=== PATIENT | female | born 1965 | race Caucasian/White ===

== ENCOUNTER → 2017-10-11 15:05 | Outpatient (CLI) | payer SELFPAY ==
[2017-10-11 17:11] LABS: Absolute Lymphocyte Count 1.56 X10^3/ul (0.83-4.51); Absolute Neutrophil Count 3.2 X10^3/uL (2.0-7.7); Basophil# 0.03 X10^3/uL; Basophil% 0.6 % (0-1); Eosinophil# 0.06 X10^3/uL; Eosinophils% 1.1 % (0-5); Hematocrit 39.2 % (37-47); Hemoglobin 12.7 g/dl (12.0-15.0); Lymphocyte # 1.56 X10^3/ul (4.0); Lymphocyte % 28.9 % (19-41); Mean Corp Hgb Conc 32.4 g/gl (32-36); Mean Corpuscular Hgb 30.8 pg (27.0-32.0); Mean Corpuscular Volume 95.1 fL (81-99); Mean Platelet Vol. 10.3 fl (6.2-12.0); Monocyte# 0.52 X10^3/uL; Monocyte% 9.6 % (0-10); Neutrophil # 3.21 X10^3/uL (2.7-7.7); Neutrophil % 59.6 % (47-70); Platelet Count 259 K/mm3 (150-450); RBC Distribution Width CV 13.3 % (11.6-14.6); RBC Distribution Width SD 44.4 fl (35.1-43.9); Red Blood Count 4.12 M/mm3 (4.2-5.4); White Blood Count 5.4 K/mm3 (4.4-11.0)
[2017-10-11 17:40] LABS: Thyroid Stim Hormone (TSH) 2.23 uIU/mL (0.358-3.74)
[2017-10-11 18:17] LABS: POSITIVE COUNT NO; POSITIVE DIFFERENTIAL NO; POSITIVE MORPHOLOGY NO
== END ==
PROVIDERS: Family Provider Family Medicine; PCP Family Medicine; Visit Provider Nurse Practitioner Women's Health
DX: N92.0 Excessive and frequent menstruation with regular cycle (principal)
CPT/HCPCS: 84443; 85025

== ENCOUNTER → 2017-10-11 15:11 | Outpatient (CLI) | payer SELFPAY ==
--- NOTE | 2017-10-11 15:17 | US_ITS ---
STUDY: ULTRASOUND OF THE FEMALE PELVIS - COMPLETE REASON FOR EXAM: Female, 52 years old. Postmenopausal bleeding. TECHNIQUE: Transabdominal and Transvaginal TECHNICAL QUALITY: Adequate. COMPARISON: None. FINDINGS: The uterus is anteverted and is in a midline position. The uterus measures 9.0 x 8.2 x 6.5 cm. Normal uterine cervix. The endometrium measures 8 mm in thickness, and is hyperechoic. There is no demonstrated endometrial mass. There is a 5.6 x 4.6 x 3.6 cm fibroid in the body of the uterus. The right ovary is visualized. The right ovary measures 5.9 x 3.9 x 2.8 cm. There are 2 cysts in the right ovary with the larger measuring 4.9 x 2.2 x 1.6 cm. There is no visualized right adnexal mass or complex lesion. There is normal arterial and normal venous vascularity. The left ovary is visualized. The left ovary measures 3.1 x 1.7 x 1.7 cm. There is a 1.1 x 1.0 x 0.7 cm cyst in the left ovary. There is no visualized left adnexal mass or complex lesion. There is normal arterial and normal venous vascularity. There is no fluid in the cul-de-sac. US/Pelvic (Non ) IMPRESSION: Bilateral ovarian cysts, including a 4.9 x 2.2 x 1.6 cm on the right. Given the patient's age, this is abnormal and further evaluation with MRI is recommended. 5.6 x 4.6 x 3.6 cm fibroid in the uterus. Electronically Signed: Porfirio Montes De Oca, at 20:54 EDT Tel , Service support ,
--- NOTE | 2017-10-11 15:17 | US_ITS ---
STUDY: ULTRASOUND OF THE FEMALE PELVIS - COMPLETE REASON FOR EXAM: Female, 52 years old. Postmenopausal bleeding. TECHNIQUE: Transabdominal and Transvaginal TECHNICAL QUALITY: Adequate. COMPARISON: None. FINDINGS: The uterus is anteverted and is in a midline position. The uterus measures 9.0 x 8.2 x 6.5 cm. Normal uterine cervix. The endometrium measures 8 mm in thickness, and is hyperechoic. There is no demonstrated endometrial mass. There is a 5.6 x 4.6 x 3.6 cm fibroid in the body of the uterus. The right ovary is visualized. The right ovary measures 5.9 x 3.9 x 2.8 cm. There are 2 cysts in the right ovary with the larger measuring 4.9 x 2.2 x 1.6 cm. There is no visualized right adnexal mass or complex lesion. There is normal arterial and normal venous vascularity. The left ovary is visualized. The left ovary measures 3.1 x 1.7 x 1.7 cm. There is a 1.1 x 1.0 x 0.7 cm cyst in the left ovary. There is no visualized left adnexal mass or complex lesion. There is normal arterial and normal venous vascularity. There is no fluid in the cul-de-sac. US/Transvaginal Non- IMPRESSION: Bilateral ovarian cysts, including a 4.9 x 2.2 x 1.6 cm on the right. Given the patient's age, this is abnormal and further evaluation with MRI is recommended. 5.6 x 4.6 x 3.6 cm fibroid in the uterus. Electronically Signed: Porfirio Montes De Oca, at 20:54 EDT Tel , Service support ,
== END ==
PROVIDERS: Family Provider Family Medicine; PCP Family Medicine; Visit Provider Nurse Practitioner Women's Health
DX: N95.0 Postmenopausal bleeding (principal); N92.0 Excessive and frequent menstruation with regular cycle
CPT/HCPCS: 76830; 76856; 93976

== ENCOUNTER → 2017-10-12 14:15 | Outpatient (CLI) | payer SELFPAY ==
[2017-10-14 15:53] LABS: Cancer Antigen 125 34.1 U/mL (0.0-38.1)
== END ==
PROVIDERS: Family Provider Family Medicine; PCP Family Medicine; Visit Provider Nurse Practitioner Women's Health
DX: N83.201 Unspecified ovarian cyst, right side (principal)
CPT/HCPCS: 36415; 82378; 86304

== ENCOUNTER 2018-02-17 07:42 | Day surgery (SDC) | payer SELFPAY ==
[2017-10-25 08:47] VITALS: BMI 21.9
--- NOTE | 2018-02-14 13:00 | EKG12_ITS ---
Test Reason : PRE-OP Blood Pressure : / mmHG Vent. Rate : 065 BPM Atrial Rate : 065 BPM P-R Int : 116 ms QRS Dur : 086 ms QT Int : 398 ms P-R-T Axes : 035 053 042 degrees QTc Int : 413 ms Normal sinus rhythm Normal ECG Confirmed by YOLY REID, OFELIA ([id number]), editor greeting card EBEN STOCKTON ([id number]) on 02/15/2018 3:57:36 PM Referred By: Camryn Head Confirmed By:OFELIA FREDERICK MD
[2018-02-14 13:42] LABS: Hematocrit 40.7 % (37-47); Hemoglobin 13.2 g/dl (12.0-15.0); Mean Corp Hgb Conc 32.4 g/gl (32-36); Mean Corpuscular Hgb 30.2 pg (27.0-32.0); Mean Corpuscular Volume 93.1 fL (81-99); Mean Platelet Vol. 9.3 fl (6.2-12.0); Platelet Count 344 K/mm3 (150-450); RBC Distribution Width CV 13.6 % (11.6-14.6); RBC Distribution Width SD 46.6 fl (35.1-43.9); Red Blood Count 4.37 M/mm3 (4.2-5.4); White Blood Count 6.6 K/mm3 (4.4-11.0)
[2018-02-14 13:43] LABS: Scan Indicated on CBC? Y/N NO
[2018-02-17] VITALS (15 sets, daily range): BP systolic 82–119; BP diastolic 53–71; PULSE 49–77; RESP 12–18; TEMP 36.1–36.9; O2SAT 99–100; BMI 24.3
--- NOTE | 2018-02-17 | HYST_PTH ---
PATIENT: ASIM FIELD [place] [facility] [id number] AGE/SX: 52/F ROOM: RE02/17/[address]: Dr. Camryn Head MD : [id number] BED: DIS: 02/18/2018 SPEC #: [id number] RECD: 02/17/18 12:27 STATUS: VÍCTOR SUZAN #: [id number] NICHELLE: 02/17/18 00:[address]: Camryn Head DEPT: SURGICAL PATHOLOGY RECD BY: David Ortega ENTERED: 02/17/18 12:28 SP TYPE: HYSTERECT OTHR DR: Dr. Gato Santoyo MD Tissues: Uterus, NOS Procedures: Surgery Specimen Level V HEADER OPERATION: Lap assisted vaginal hysterectomy, right salpingo-oophorectomy PRE-OP DIAGNOSIS: Uterine fibroid TISSUE SUBMITTED: Uterus, right ovary and fallopian tube, left fallopian tube MICROSCOPIC DIAGNOSIS Uterus, hysterectomy: Cervix - minimal chronic inflammation. Endometrium - proliferative endometrium. Myometrium - leiomyomas and focal superficial adenomyosis. Right ovary - hemorrhagic corpus luteal cyst. Right and left fallopian tubes - no pathologic change. AM:eveline 02/18/18 COMMENT Case has been reviewed in consultation with Dr. Levine who concurs with the above diagnosis. IDC:SJ MICROSCOPIC DESCRIPTION Slides are reviewed. GROSS DESCRIPTION Received in fixative is one container labeled with the patient's name and designated uterus. The specimen consists of a uterus with attached right fallopian tube and ovary and attached left fallopian tube. The uterus with cervix measures 9 x 7 x 5 cm and weighs 161 gm. The ectocervix is oval in contour and free of mass lesions. The endocervical canal measures 2.8 cm in length and is grossly unremarkable. The triangular endometrial cavity measures 4.2 x 3 cm. The reddish-michel endometrium measures up to 0.1 cm in thickness. The myometrium measures 2.5 cm in average thickness and is distorted by multiple spherical, rubbery nodules ranging in size from 0.5 to 4 cm in greatest dimension. The smooth, glistening right cystic ovary measures 5 x 4 x 3.8 cm and weighs 30 gm. The external surface is inked and serial sections reveal the cyst to contain reddish-michel clear fluid. The inner cyst lining is smooth and glistening. The cyst wall averages 0.1 cm in thickness. No papillary projections or excrescences are seen. The adjacent right fallopian tube measures 4.5 cm in length and 0.7 cm in average diameter. No tubo-ovarian adhesions are seen and a normal fimbriated end is present. The left fallopian tube is similar in appearance to the right tube and measures 4 cm in length and 0.6 cm in average diameter. [employer] sections are submitted in 12 cassettes as follows: 1 - anterior cervix, 2 - posterior cervix, 3 & 4 - anterior uterine wall, 5 & 6 - posterior uterine wall, 7 - largest myometrial mass, 8 - smaller myometrial masses, 9 & 10 - cystic right ovary, 11 - right fallopian tube, 12 - left fallopian tube. / AM:eveline 02/17/18 TC:1 CPT: 67728
--- NOTE | 2018-02-17 05:48 | PCM.HPOB.BLA ---
- Problem List (1) Abnormal uterine bleeding Status: Chronic (2) Complex ovarian cyst Status: Chronic (3) Enlarged uterus Status: Chronic (4) Fibroids, intramural Status: Chronic History and Physical Date of Admission: 02/17/18 Allergies No Known Allergies Allergy (Verified 10/25/17 08:45) Medications norethindrone acetate 5 mg tablet 5 mg PO QDAY #30 tab 10/25/17 [Rx Confirmed 10/25/17] Is last menstrual period known: Yes Last Menstral Period: 10/24/17 Post menopausal: No Patient : No : No PFSH Surgical History H/O hernia repair (Acute) History of appendectomy (Acute) Family History Father Myocardial infarction Heart disease Sister Uterine cancer Social History alcohol intake: current details: social-rare substance use type: does not use caffeine: Yes what type of physical activity do you participate in: walking seatbelt use: always do you feel safe at home: Yes additional social history: [employer]- Self Employed Patient works at [email or web address] [facility] Details: ASIM FIELD is a 52 year old who presents for right ovarian cyst and enlarged uterus with 5.6 cm fibroid. she has had irregular heavy bleeding. she has been on aygestin with some improvement. she had a normal ca 125 and cea. she is wanted to proceed with hysterectomy. Female Reproductive History Cycle Length: 21-35 heavy abd prolonged lasting 7-14 days Questions: Sexually active: Yes, Dyspareunia: Yes deep Pregancy History 6 Elective abortions Hx Para 4 Spontaneous abortions Hx # Term Pregnancies Ectopic pregnancies Hx # Pregnancies Multiple births # of living children Past Pregnancies Del. Date Name GA/Weeks Outcome Route Bth Weight Infant Gen Labor Lgth Anesthesia Del Locatn Provider FOB Unknown 1988 Valeria Unknown 1990 Yadira Unknown 1991 Jeannie Unknown 1997 Deepika all vaginal deliveries ROS Const Constitutional: Denies poor appetite, headache(s), fever(s), increased appetite, weight gain, weight loss or fatigue Cardio Card: Denies chest pain Resp Resp: Denies dyspnea or cough GI GI: Reports as per HPI, abdominal pain and bloating; denies vomiting, nausea or constipation : Reports as per HPI, urinary urgency, urinary frequency and urinary incontinence (camron WITH EXERCISE, ACTIVITY); denies vaginal discharge, vaginal itching, vaginal odor, vaginal dryness, urinary hesitancy, difficulty urinating, painful urination or nipple discharge Skin Skin/Breast: Denies breast lump, breast pain, breast skin changes, nipple discharge or change in hair Exam Const General: cooperative, healthy appearing, comfortable, no acute distress, well developed Nutritional Appearance: average body habitus Orientation: alert HENMN Head: normal to inspection, normocephalic Neck Neck: normal visual inspection, trachea midline Thyroid: thyroid normal Resp Effort & Inspection: normal respiratory effort GI Inspection: normal to inspection, non-distended Palpation: soft, no hepatosplenomegaly General: bladder normal to palpation External Female Exam: normal external appearance, normal appearance of the urethra Urethra: normal appearance of the urethra, normal palpation, no discharge Speculum Exam - Vagina: normal appearance of the vagina, normal vaginal discharge Speculum Exam - Cervix: normal appearance of the cervix, nontender Bimanual Exam- Vagina & Uterus: bladder normal to palpation, No cervical tenderness, uterine size enlarged, uterine shape enlarged, uterine mobility normal, uterine consistency normal, normal cervical palpation, uterus non-tender Bimanual Exam- Adnexa, other: no abnormalities palpated but ultrasound showed complex cyst Skin General: no rashes or lesions noted Assessment & Plan Problems 1. Enlarged uterus N85.2 2. Complex ovarian cyst N83.299 3. Fibroids, intramural D25.1 4. Abnormal uterine bleeding N93.9 Plan discussed surgical risks including risks of anesthesia, infection, bleeding, injury to bowel, bladder or blood vessels, and patient wishes to proceed with surgery. plan LAVH RSO left salpingectomy UPDATE- I have seen the patient and performed any clinically relevant updates to the history and physical exam. Camryn Head MD
[2018-02-17 08:19] LABS: Internal QC Validated? YES +Cl - CLEAR BKGD; Pregnancy, Urine Negative Negative
[2018-02-17] MEDS: Scopolamine 1mg/72hr Patch 1 PATCH TRANSDERM. (08:30)
[2018-02-17] MEDS: Phenazopyridine 95 MG Tablet 190 MG PO (08:33)
[2018-02-17] MEDS: Celecoxib 200 MG Capsule 400 MG PO (08:33)
[2018-02-17] MEDS: Gabapentin 600 MG Tablet PO (08:33)
[2018-02-17] MEDS: Enoxaparin 40 MG/0.4 ML Syringe SC (08:34)
[2018-02-17] MEDS: Acetaminophen 500 MG Tablet 1000 MG PO ×2 (08:36→17:13)
[2018-02-17 09:01] LABS: Bedside Glucose 70 mg/dL (70-110)
[2018-02-17] MEDS: Lidocaine/D5W 2,000 MG/250 ML IV.SOLN 17.52 MG IV (10:12)
--- NOTE | 2018-02-17 10:26 | PCM.OPRPT ---
Problem List (1) Abnormal uterine bleeding Status: Chronic (2) Complex ovarian cyst Status: Chronic (3) Enlarged uterus Status: Chronic (4) Fibroids, intramural Status: Chronic Report of Operation Date of Procedure: 02/17/18 Pre-Operative Diagnosis: Abnormal uterine bleeding uterine fibroid ovarian cyst Post-Operative Diagnosis: same plus endometriosis Surgery/Procedure Performed:: LAVH bilateral salpingectomy right oophorectomy cystoscopy Description of Surgical Findings:: enlarged uterus tubes abnormal right ovary, endometriosis implants left cul de sac old disease nothing current oral communication instructor: Carmel Blankenship oral communication instructor: Alice Puga Type of Anesthesia:: General Special Medications: cefoxitin Specimen's removed: uterus tubes right ovary Drains: ribeiro Estimated Blood Loss (mL): 250 Fluids Replaced: crystalloid Description of Procedure: Patient received preoperative antibiotics and SCDs were on preoperatively. Patient was taken back to the operating room and placed in the dorsal lithotomy position. General anesthesia was induced and patient was prepped and draped in normal sterile fashion. Uterine manipulator was placed inside the uterus and Ribeiro catheter placed in the bladder. The umbilicus was grasped with towel clamps and an intraumbilical incision was made after injecting with quarter percent Marcaine and a Veress needle entered into the abdomen confirmed to be intra-abdominal with a low opening pressure. Abdomen was insufflated with CO2 gas and the Veress needle removed and the 5 mm trocar was placed under direct visualization without complication. Right and left lower quadrants were transilluminated and injected with quarter percent Marcaine and 5 mm ports placed under direct visualization. Pelvis was well visualized see operative findings for additional information. Bilateral fallopian tubes were identified and transected with the LigaSure device across the mesosalpinx to the level of the utero-ovarian ligament which was also transected with the LigaSure device. The broad ligament was opened up by transecting the round ligament bilaterally and skeletonizing the uterine vessels bilaterally and creating a bladder flap using the LigaSure device. The uterine arteries were transected bilaterally with good visualization of the bladder and the ureters were seen to be inferior lateral to the operative area. Attention was then paid to the vaginal portion of the procedure and the cervix was grasped with Adi clamps and circumferentially injected with dilute vasopressin. A circumferential incision was made and the vaginal mucosa was mobilized off posteriorly and the cul-de-sac entered into sharply and a longneck speculum placed. The anterior cul-de-sac was then identified and entered into sharply. The uterosacral ligaments were clamped cut and suture ligated with 0 Monocryl bilaterally followed by the cardinal ligaments which were clamped cut and suture ligated bilaterally with 0 Monocryl. The uterus serially descended and was removed without difficulty. Pelvic sidewall pedicles were checked and noted to have excellent hemostasis. The vaginal mucosa was reapproximated incorporating the posterior peritoneum. This was reapproximated using 0 Vicryl [id number] sutures. Excellent hemostasis was noted. The cystoscopy was then performed and bilateral ureteral strong spray was noted and the bladder was noted to have no abnormality or lesions seen. Ribeiro catheter was replaced and then attention paid to the abdominal portion of the procedure again. The pelvis and cul-de-sac was well visualized and no significant active bleeding noted. Pressure was taken down and the areas visualized and noted of excellent hemostasis. All ports were removed under direct visualization without complication and the abdomen was desufflated of air. The instruments removed from the abdomen and the vagina vaginal sweep was negative. Port sites on the abdomen were closed with 4-0 Monocryl interrupted sutures and Steri's and windows were applied. She was awoken and taken recovery in stable condition. Grafts/Implants Used: none - Complications none - Admit VTE Documentation VTE Present on Admission: No VTE Mechan Device Prophylaxis: SCD's VTE Pharm Prophylaxis ordered?: Yes
--- NOTE | 2018-02-17 10:28 | DCINST_ITS ---
Discharge Diet: No Restrictions Discharge Activity: Return to Normal Activity, May Not Drive, May Shower May resume sexual activity in: 6-8 weeks Call your doctor if your incision/area has: Continuous Slow Oozing, Sudden Increased Bleeding, Increased Pain/ Swelling, Increased Redness, Foul Smelling Discharge Call your doctor if you observe: Fever of 101 or Higher, Inability to urinate, Inability to have a bowel movement, Using more than one pad per hour Allergies/Adverse Reactions: Allergies No Known Allergies Allergy (Verified 02/09/18 10:08) Medications to take at Discharge norethindrone acetate 5 mg tablet 5 mg PO QDAY #30 tab 10/25/17 Naproxen [Naprosyn] 250 - 500 mg PO Q8H PRN PRN #30 tablet 02/17/18 Oxycodone HCl/Acetaminophen [Percocet 5-325] 1 - 2 tablet PO Q4H PRN PRN 7 Days #15 tablet 02/17/18 The following prescriptions were given: Oxycodone HCl/Acetaminophen [Percocet 5-325] 1 - 2 tablet PO Q4H PRN PRN 7 Days #15 tablet PRN Reason: Pain Naproxen [Naprosyn] 250 - 500 mg PO Q8H PRN PRN #30 tablet PRN Reason: MILD PAIN Orders to be completed after discharge: Type & Screen Time Frame: 02/14/18, Location: None Selected 12 Lead EKG [[facility]] Time Frame: 02/14/18, Location: None Selected Primary Care Physician: Gato Santoyo MD [Primary Care Provider] - Test Results: Test results from this visit will be discussed in further detail at your follow- up appointment, if applicable. Please Follow Up With: Camryn Head MD - [phone]
[2018-02-17] MEDS: Bupivacaine 0.25% 30 ML Vial (10:39)
[2018-02-17] MEDS: Vasopressin 20 UNITS/ML Vial (10:56)
[2018-02-17] MEDS: Ondansetron 4 MG/2 ML Vial IV (11:32)
[2018-02-17] MEDS: Lactated Ringers 1,000 ML 100 ML IV ×2 (13:39→17:12)
--- NOTE | 2018-02-17 22:07 | NURSING ---
3rd postop check not completed by dayshift and should have been done around 1848. This RN just caught this mistake. Will assess pt now.
[2018-02-17] MEDS: Docusate Sodium 100 MG Capsule PO (22:27)
[2018-02-17] MEDS: Ketorolac 10 MG Tablet PO (22:27)
[2018-02-18] MEDS: Acetaminophen 500 MG Tablet 1000 MG PO ×2 (00:17→05:38)
[2018-02-18] MEDS: oxyCODONE 5 MG Tablet PO ×3 (00:18→09:42)
[2018-02-18 03:05] VITALS: BP 104/63; PULSE 75; RESP 18; TEMP 36.8; O2SAT 99
[2018-02-18] MEDS: Lactated Ringers 1,000 ML 100 ML IV (03:24)
[2018-02-18 05:51] LABS: Hematocrit 31.2 % (37-47); Hemoglobin 10.1 g/dl (12.0-15.0); Mean Corp Hgb Conc 32.4 g/gl (32-36); Mean Corpuscular Hgb 30.1 pg (27.0-32.0); Mean Corpuscular Volume 93.1 fL (81-99); Mean Platelet Vol. 9.2 fl (6.2-12.0); Platelet Count 231 K/mm3 (150-450); RBC Distribution Width CV 13.7 % (11.6-14.6); RBC Distribution Width SD 47.1 fl (35.1-43.9); Red Blood Count 3.35 M/mm3 (4.2-5.4); White Blood Count 7.8 K/mm3 (4.4-11.0)
[2018-02-18 05:59] LABS: Scan Indicated on CBC? Y/N NO
[2018-02-18 06:11] LABS: Anion Gap 5 (5-15); BUN 10 mg/dL (7-18); BUN/Creat Ratio 12.9 RATIO (10-20); Calcium,Total 7.4 mg/dL (8.5-10.1); Chloride 106 mmol/L (98-107); Creatinine, Serum 0.77 mg/dL (0.55-1.02); EST Glomerular Filtration Rate 83 mL/min (>60); Est Glom Filt Rate - Afr Amer 100 mL/min (>60); Estimated Creatinine Clearance 64.49 ml/min; Glucose 92 mg/dL (74-106); Potassium 4.2 mmol/L (3.5-5.1); Sodium Level 140 mmol/L (136-145)
[2018-02-18 07:15] VITALS: O2SAT 99
[2018-02-18 07:47] VITALS: BP 100/47; PULSE 67; RESP 16; TEMP 37; O2SAT 98
[2018-02-18 07:56] VITALS: BP 93/52; PULSE 69; RESP 16; TEMP 36.6; O2SAT 96
[2018-02-18 08:04] VITALS: PULSE 67; RESP 16; O2SAT 98
[2018-02-18] MEDS: Enoxaparin 40 MG/0.4 ML Syringe SC (09:32)
[2018-02-18] MEDS: Docusate Sodium 100 MG Capsule PO (09:33)
--- NOTE | 2018-02-18 10:48 | PCM.PN.OB ---
Subjective: oingw ell no complaints - Physical Exam General: Alert, Oriented x3 Vital Signs Temp Pulse Resp BP Pulse Ox 98 F 67 16 93/52 L 98 02/18/18 07:56 02/18/18 08:04 02/18/18 08:04 02/18/18 07:56 02/18/18 08:04 Oxygen Flow Rate (L/min) 2 Oxygen Delivery Method Room Air Weight: 128 lb 11.999 oz Body Mass Index (BMI) 24.3 Intake and Output for Last 24 Hours 02/16/18 02/17/18 02/18/18 23:59 23:59 23:59 Intake Total 2700 / 2700 1452 / 1452 Output Total 380 / 380 725 / 725 Balance 2320 / 2320 727 / 727 Laboratory Tests Past 24 Hrs 02/18/18 02/18/18 05:26 05:26 WBC 7.8 RBC 3.35 L Hgb 10.1 L Hct 31.2 L MCV 93.1 MCH 30.1 MCHC 32.4 RDW 13.7 RDW Differential 47.1 H Plt Count 231 MPV 9.2 Sodium 140 Potassium 4.2 Chloride 106 Carbon Dioxide 29.0 Anion Gap 5 BUN 10 Creatinine 0.77 Estim Creat Clear Calc 64.49 Est GFR (MDRD) Af Amer 100 Est GFR (MDRD) Non-Af 83 BUN/Creatinine Ratio 12.9 Glucose 92 Calcium 7.4 L Medical Necessity - Tobacco Use Smoking Status: Never smoker Assessment/Plan a/p ruotine care doing well dc home
--- OUTSIDE RECORDS SUMMARY | 2018-04-14 07:14 | XMS RPT_ITS ---
:1965 Author Organization OHIP Support Name Relationship Address Phone S Unavailable Unavailable Unavailable LOKESH FIELD Unavailable [address] + [place] [address] S Unavailable Unavailable Unavailable LOKESH FIELD Unavailable [address] + [place] [address] S Unavailable Unavailable Unavailable LOKESH FIELD Unavailable [address] + [place] [address] S Unavailable Unavailable Unavailable LOKESH FIELD Unavailable [address] + [place] [address] S Unavailable Unavailable Unavailable LOKESH FIELD Unavailable [address] + [place] [address] S Unavailable Unavailable Unavailable LOKESH FIELD Unavailable [address] + [place] [address] S Unavailable Unavailable Unavailable LOKESH FIELD Unavailable [address] + [place] [address] S Unavailable Unavailable Unavailable LOKESH FIELD Unavailable [address] + [place] [address] S Unavailable Unavailable Unavailable LOKESH FIELD Unavailable [address] + [place] [address] S Unavailable Unavailable Unavailable LOKESH FIELD Unavailable [address] + [place] [address] S Unavailable Unavailable Unavailable LOKESH FIELD Unavailable [address] + [place] [address] Care Team Providers Name Role Phone Camryn Head Attending Unavailable Gato Santoyo Referring Unavailable Lucita De Leon Attending Unavailable Gato Santoyo Referring Unavailable Gato Santoyo Primary Care Unavailable Lucita De Leon Attending Unavailable Gato Santoyo Primary Care Unavailable [place], Lucita Attending Unavailable [place], Lucita Referring Unavailable Santoyo, Gato Primary Care Unavailable [place], Lucita Attending Unavailable [place], Lucita Referring Unavailable Santoyo, Gato Primary Care Unavailable Marcanthony, Camryn Attending Unavailable Santoyo, Gato Referring Unavailable Santoyo, Gato Primary Care Unavailable Marcanthony, Camryn Attending Unavailable Marcanthony, Camryn Referring Unavailable Santoyo, Gato Primary Care Unavailable Eusebio, Ishan Attending Unavailable Santoyo, Gato Referring Unavailable Marcanthony, Camryn Attending Unavailable Marcanthony, Camryn Referring Unavailable Santoyo, Gato Primary Care Unavailable Marcanthony, Camryn Consulting Unavailable Marcanthony, Camryn Attending Unavailable Marcanthony, Camryn Referring Unavailable Santoyo, Gato Primary Care Unavailable Marcanthony, Camryn Consulting Unavailable Carlos, Dean Attending Unavailable Marcanthony, Camryn Referring Unavailable PROBLEMS PROBLEMS DATE TYPE CONDITION / CODE ATTENDING STATUS SOURCE 03/03/2018 Unknown Z48.89 - Encounter Marcanthony, Active [place] for other specified [facility] surgical aftercare / Hospital Z48.89(ICD-10) Repository 02/18/2018 Unknown G89.18 - Other acute Marcanthony, Active [place] postprocedural pain [facility] / G89.18(ICD-10) Hospital Repository 02/24/2018 Unknown Z01.810 - Encounter Carlos, [place] Active [place] for preprocedural [facility] cardiovascular [facility] examination / Repository Z01.810(ICD-10) 10/12/2017 Unknown N83.201 - [place], Lucita Active [place] Unspecified ovarian Community cyst, right side / Hospital N83.201(ICD-10) Repository 10/11/2017 Unknown N95.0 - [place], Lucita Active [place] Postmenopausal Community bleeding / Hospital N95.0(ICD-10) Repository 10/11/2017 Unknown N92.0 - Excessive [place], Lucita Active [place] and frequent Community menstruation with Hospital regular cycle / Repository N92.0(ICD-10) PROCEDURES PROCEDURES No Procedure Records FoundRESULTS RESULTS FINANCIAL EXAMINER OFFICE VISIT Observed: 03/03/2018 Status: F Source: [place] REPORT 10:31 AM [facility] REPOSITORY [facility]'s [address] [place] [address] OFFICE VISIT Date of Service: 03/03/18 MR#: [id number] Acct: [id number] Name: ASIM FIELD Rep #: [id number] : 1965 Provider: Camryn Head MD Age/Sex: 52/F Location: [facility] [place] Status: Signed Intake Vital Signs03/03/18 Body Mass Index (BMI) 24.3 03/03/18 Weight: 110 lb 6 oz 03/03/18 Blood Pressure 105/68 Intake Visit Reasons: POST OP HYSTERECTOMY 02/17/18 Lineman Required: No Is patient in pain?: No Allergies No Known Allergies Allergy (Verified 03/03/18 09:59) Is last menstrual period known: No Post menopausal: No Patient : No : No PFSH Surgical History H/O bilateral salpingo-oophorectomy (Acute) H/O hernia repair (Acute) History of appendectomy (Acute) Family History Father Myocardial infarction Heart disease Sister Uterine cancer Social History alcohol intake: current details: social-rare substance use type: does not use caffeine: Yes what type of physical activity do you participate in: walking seatbelt use: always do you feel safe at home: Yes additional social history: Eren- Self Employed Patient works at [employer] [facility] POST OP HYSTERECTOMY 02/17/18: Details: ASIM FIELD is a 52 year old who presents for postop appointment post lavh Pregancy History 6 Elective abortions Hx Para 4 Spontaneous abortions Past Pregnancies Del. DateName GA/Weeks Outcome Route Bth WeighInfant GeLabor LgtAnesthesiDel LocatProvider FOB t n h a n ROS Const Constitutional: Reports system reviewed and no additional complaints, except as docu GI GI: Denies abdominal pain, nausea, vomiting or cramping : Denies urinary frequency, vaginal dryness, vaginal discharge, urinary urgency, urinary incontinence, vaginal odor or pelvic pain Exam Const General: cooperative, healthy appearing, comfortable, no acute distress GI Inspection: normal to inspection Palpation: soft, nontender Other: Incisions: C/D/I Assessment AND Plan Problems 1. Encounter for postoperative care Z48.89 Plan routine care fu in 6 weeks Coding Level of Care Code No Charge Diagnoses Encounter for postoperative care Z48.89 03/03/18 1031 <Electronically signed by Camryn Head MD> Date Camryn Head MD [facility] Signature: Date (if applicable) CC: 12 LEAD ELECTROCARDIOGRAM Observed: 02/18/2018 Status: F Source: [place] 9:24 AM [facility] REPOSITORY [facility] Cardiovascular Services [facility] [place] [address] 12 Lead EKG 02/14/18 1306 MR#: [id number] Acct: [id number] Name: ASIM FIELD Rep #: [id number] : 1965 52 From: Dean Gonzalez MD Attending Dr: Camryn Head MD Status: REG WYC Ordering Dr: Camryn Head MD Date: 02/14/18 [place] [facility] Sex: F C Admitted: Test Reason : PRE-OP Blood Pressure : / mmHG Vent. Rate : 065 BPM Atrial Rate : 065 BPM P-R Int : 116 ms QRS Dur : 086 ms QT Int : 398 ms P-R-T Axes : 035 053 042 degrees QTc Int : 413 ms Normal sinus rhythm Normal ECG Confirmed by DEAN GONZALEZ MD ([id number]), editor news EBEN STOCKTON ([id number]) on 02/15/2018 3:57:36 PM Referred By: Camryn Head Confirmed By:DEAN GONZALEZ MD 02/15/18 1557 Date Dean Gonzalez MD CC: Gato Santoyo MD; Camryn Head MD Signed CBC-COMPLETE BLOOD CNT Collected: 02/18/2018 Status: F Source: [place] NO DIFF 5:26 AM [facility] REPOSITORY TYPE CODE TESTS RESULT OUT OF RANGE REFERENCE UNITS LAB L100.1000 4.4-11.0 K/mm3 Normal WBC 7.8 LAB L100.1200 4.2-5.4 M/mm3 Low RBC 3.35 LAB L100.1300 12.0-15.0 g/dl Low HGB 10.1 LAB L100.1400 37-47 % Low HCT 31.2 LAB L100.1500 81-99 fL Normal MCV 93.1 LAB L100.1600 27.0-32.0 pg Normal MCH 30.1 LAB L100.1700 32-36 g/gl Normal MCHC 32.4 LAB L100.1810 11.6-14.6 % Normal RDW CV 13.7 LAB L100.1820 35.1-43.9 fl High RDW SD 47.1 LAB L100.1900 150-450 K/mm3 Normal PLT 231 LAB L100.2000 6.2-12.0 fl Normal MPV 9.2 Performed By: #### L100.0500 #### [facility] [address] [place], [address] BASIC METABOLIC Collected: 02/18/2018 Status: F Source: [place] PROFILE (BMP) 5:26 AM [facility] REPOSITORY TYPE CODE TESTS RESULT OUT OF RANGE REFERENCE UNITS LAB L501.0100 74-106 mg/dL Normal GLU 92 Result Comment: Please note revised GLUCOSE reference range effective 2017. LAB L501.1000 7-18 mg/dL Normal BUN 10 LAB L501.1100 0.55-1.02 mg/dL Normal CREAT,SERUM 0.77 Result Comment: The validity of the calculated GFR AND GFRAA in patients over 70 years has not been determined. Clinical correlation is essential. LAB L501.1110 >60 mL/min Normal EST GFR 83 Result Comment: Non- GFR Calc LAB L501.1115 >60 mL/min Normal EST GFR - AA 100 Result Comment: GFR Calc LAB L501.1255 ml/min Normal Estimated CRCL 64.49 LAB L501.1300 10-20 RATIO Normal BUN/CRE 12.9 LAB L501.2200 8.5-10 mg/dL Low .1 CA 7.4 LAB L501.5300 136-14 mmol/L Normal 5 NA 140 LAB L501.5600 3.5-5. mmol/L Normal 1 K 4.2 LAB L501.5900 98-107 mmol/L Normal CL 106 LAB L501.6100 21.0-3 mmol/L Normal 2.0 CO2 29.0 LAB L501.6200 5-15 Normal GAP 5 Performed By: #### L500.2500 #### [facility] [address] [facility] [address] [place], [address] OPERATIVE REPORT Observed: 02/17/2018 Status: F Source: [place] 11:33 AM [facility] REPOSITORY [facility] Medical Records Department [address] [place] [address] Operative Report 02/17/18 1026 MR#: [id number] Acct: [id number] Name: ASIM FIELD Rep #: [id number] : 1965 52 From: Camryn Head MD PCP: Gato Santoyo MD Status: [facility] Y Location: [place] [address] Problem List (1) Abnormal uterine bleeding Status: Chronic (2) Complex ovarian cyst Status: Chronic (3) Enlarged uterus Status: Chronic (4) Fibroids, intramural Status: Chronic Report of Operation Date of Procedure: 02/17/18 Pre-Operative Diagnosis: Abnormal uterine bleeding uterine fibroid ovarian cyst Post-Operative Diagnosis: same plus endometriosis Surgery/Procedure Performed:: LAVH bilateral salpingectomy right oophorectomy cystoscopy Description of Surgical Findings:: enlarged uterus tubes abnormal right ovary, endometriosis implants left cul de sac old disease nothing current piano stringer: Carmel Blankenship piano stringer: Alice Puga Type of Anesthesia:: General Special Medications: cefoxitin Specimen's removed: uterus tubes right ovary Drains: ribeiro Estimated Blood Loss (mL): 250 Fluids Replaced: crystalloid Description of Procedure: Patient received preoperative antibiotics and SCDs were on preoperatively. Patient was taken back to the operating room and placed in the dorsal lithotomy position. General anesthesia was induced and patient was prepped and draped in normal sterile fashion. Uterine manipulator was placed inside the uterus and Ribeiro catheter placed in the bladder. The umbilicus was grasped with towel clamps and an intraumbilical incision was made after injecting with quarter percent Marcaine and a Veress needle entered into the abdomen confirmed to be intra-abdominal with a low opening pressure. Abdomen was insufflated with CO2 gas and the Veress needle removed and the 5 mm trocar was placed under direct visualization without complication. Right and left lower quadrants were transilluminated and injected with quarter percent Marcaine and 5 mm ports placed under direct visualization. Pelvis was well visualized see operative findings for additional information. Bilateral fallopian tubes were identified and transected with the LigaSure device across the mesosalpinx to the level of the utero-ovarian ligament which was also transected with the LigaSure device. The broad ligament was opened up by transecting the round ligament bilaterally and skeletonizing the uterine vessels bilaterally and creating a bladder flap using the LigaSure device. The uterine arteries were transected bilaterally with good visualization of the bladder and the ureters were seen to be inferior lateral to the operative area. Attention was then paid to the vaginal portion of the procedure and the cervix was grasped with Adi clamps and circumferentially injected with dilute vasopressin. A circumferential incision was made and the vaginal mucosa was mobilized off posteriorly and the cul-de-sac entered into sharply and a longneck speculum placed. The anterior cul-de-sac was then identified and entered into sharply. The uterosacral ligaments were clamped cut and suture ligated with 0 Monocryl bilaterally followed by the cardinal ligaments which were clamped cut and suture ligated bilaterally with 0 Monocryl. The uterus serially descended and was removed without difficulty. Pelvic sidewall pedicles were checked and noted to have excellent hemostasis. The vaginal mucosa was reapproximated incorporating the posterior peritoneum. This was reapproximated using 0 Vicryl [id number] sutures. Excellent hemostasis was noted. The cystoscopy was then performed and bilateral ureteral strong spray was noted and the bladder was noted to have no abnormality or lesions seen. Ribeiro catheter was replaced and then attention paid to the abdominal portion of the procedure again. The pelvis and cul-de-sac was well visualized and no significant active bleeding noted. Pressure was taken down and the areas visualized and noted of excellent hemostasis. All ports were removed under direct visualization without complication and the abdomen was desufflated of air. The instruments removed from the abdomen and the vagina vaginal sweep was negative. Port sites on the abdomen were closed with 4-0 Monocryl interrupted sutures and Steri's and windows were applied. She was awoken and taken recovery in stable condition. Grafts/Implants Used: none - Complications none - Admit VTE Documentation VTE Present on Admission: No VTE Mechan Device Prophylaxis: SCD's VTE Pharm Prophylaxis ordered?: Yes 02/17/18 1133 <Electronically signed by Camryn Head MD> Date Camryn Head MD CC: Gato Santoyo MD; Camryn Head MD Signed DISCHARGE INSTRUCTION Observed: 02/17/2018 Status: F Source: [place] 10:28 AM [facility] REPOSITORY [facility] Medical Records Department [address] [place] [address] Instructions for Home/Discharge Instructions 02/17/18 1027 MR#: [id number] Acct: [id number] Name: ASIM FIELD Rep #: [id number] : 1965 52 From: Camryn Head MD PCP: Gato Santoyo MD Status: REG SDC Discharge Diet: No Restrictions Discharge Activity: Return to Normal Activity, May Not Drive, May Shower May resume sexual activity in: 6-8 weeks Call your doctor if your incision/area has: Continuous Slow Oozing, Sudden Increased Bleeding, Increased Pain/ Swelling, Increased Redness, Foul Smelling Discharge Call your doctor if you observe: Fever of 101 or Higher, Inability to urinate, Inability to have a bowel movement, Using more than one pad per hour Allergies/Adverse Reactions: Allergies No Known Allergies Allergy (Verified 02/09/18 10:08) Medications to take at Discharge norethindrone acetate 5 mg tablet 5 mg PO QDAY #30 tab 10/25/17 Naproxen [Naprosyn] 250 - 500 mg PO Q8H PRN PRN #30 tablet 02/17/18 Oxycodone HCl/Acetaminophen [Percocet 5-325] 1 - 2 tablet PO Q4H PRN PRN 7 Days #15 tablet 02/17/18 The following prescriptions were given: Oxycodone HCl/Acetaminophen [Percocet 5-325] 1 - 2 tablet PO Q4H PRN PRN 7 Days #15 tablet PRN Reason: Pain Naproxen [Naprosyn] 250 - 500 mg PO Q8H PRN PRN #30 tablet PRN Reason: MILD PAIN Orders to be completed after discharge: Type AND Screen Time Frame: 02/14/18, Location: None Selected 12 Lead EKG [[facility]] Time Frame: 02/14/18, Location: None Selected Primary Care Physician: Gato Santyoo MD [Primary Care Provider] - Test Results: Test results from this visit will be discussed in further detail at your follow-up appointment, if applicable. Please Follow Up With: Camryn Head MD - [phone] 02/17/18 1028 <Electronically signed by Camryn Head MD> Date Camryn Head MD CC: Gato Santoyo MD HISTORY AND PHYSICAL Observed: 02/17/2018 Status: F Source: [place] EXAM 10:22 AM [facility] REPOSITORY [facility] Medical Records Department [address] [place] [address] History and Physical 02/17/18 0548 MR#: [id number] Acct: [id number] Name: ASIM FIELD Rep #: [id number] : 1965 52 From: Camryn Head MD PCP: Gato Santoyo MD Status: [facility] Y Location: [place] [address] - Problem List (1) Abnormal uterine bleeding Status: Chronic (2) Complex ovarian cyst Status: Chronic (3) Enlarged uterus Status: Chronic (4) Fibroids, intramural Status: Chronic History and Physical Date of Admission: 02/17/18 Allergies No Known Allergies Allergy (Verified 10/25/17 08:45) Medications norethindrone acetate 5 mg tablet 5 mg PO QDAY #30 tab 10/25/17 [Rx Confirmed 10/25/17] Is last menstrual period known: Yes Last Menstral Period: 10/24/17 Post menopausal: No Patient : No : No PFSH Surgical History H/O hernia repair (Acute) History of appendectomy (Acute) Family History Father Myocardial infarction Heart disease Sister Uterine cancer Social History alcohol intake: current details: social-rare substance use type: does not use caffeine: Yes what type of physical activity do you participate in: walking seatbelt use: always do you feel safe at home: Yes additional social history: [employer]ren- Self Employed Patient works at [employer] [facility] Details: ASIM FIELD is a 52 year old who presents for right ovarian cyst and enlarged uterus with 5.6 cm fibroid. she has had irregular heavy bleeding. she has been on aygestin with some improvement. she had a normal ca 125 and cea. she is wanted to proceed with hysterectomy. Female Reproductive History Cycle Length: 21-35 heavy abd prolonged lasting 7-14 days Questions: Sexually active: Yes, Dyspareunia: Yes deep Pregancy History 6 Elective abortions Hx Para 4 Spontaneous abortions Past Pregnancies Del. DateName GA/Weeks Outcome Route Bth WeighInfant GeLabor LgtAnesthesiDel LocatProvider FOB t n h a n all vaginal deliveries ROS Const Constitutional: Denies poor appetite, headache(s), fever(s), increased appetite, weight gain, weight loss or fatigue Cardio Card: Denies chest pain Resp Resp: Denies dyspnea or cough GI GI: Reports as per HPI, abdominal pain and bloating; denies vomiting, nausea or constipation : Reports as per HPI, urinary urgency, urinary frequency and urinary incontinence (tricia WITH EXERCISE, ACTIVITY); denies vaginal discharge, vaginal itching, vaginal odor, vaginal dryness, urinary hesitancy, difficulty urinating, painful urination or nipple discharge Skin Skin/Breast: Denies breast lump, breast pain, breast skin changes, nipple discharge or change in hair Exam Const General: cooperative, healthy appearing, comfortable, no acute distress, well developed Nutritional Appearance: average body habitus Orientation: alert HENMT Head: normal to inspection, normocephalic Neck Neck: normal visual inspection, trachea midline Thyroid: thyroid normal Resp Effort AND Inspection: normal respiratory effort GI Inspection: normal to inspection, non-distended Palpation: soft, no hepatosplenomegaly General: bladder normal to palpation External Female Exam: normal external appearance, normal appearance of the urethra Urethra: normal appearance of the urethra, normal palpation, no discharge Speculum Exam - Vagina: normal appearance of the vagina, normal vaginal discharge Speculum Exam - Cervix: normal appearance of the cervix, nontender Bimanual Exam- Vagina AND Uterus: bladder normal to palpation, No cervical tenderness, uterine size enlarged, uterine shape enlarged, uterine mobility normal, uterine consistency normal, normal cervical palpation, uterus non-tender Bimanual Exam- Adnexa, other: no abnormalities palpated but ultrasound showed complex cyst Skin General: no rashes or lesions noted Assessment AND Plan Problems 1. Enlarged uterus N85.2 2. Complex ovarian cyst N83.299 3. Fibroids, intramural D25.1 4. Abnormal uterine bleeding N93.9 Plan discussed surgical risks including risks of anesthesia, infection, bleeding, injury to bowel, bladder or blood vessels, and patient wishes to proceed with surgery. plan LAVH RSO left salpingectomy UPDATE- I have seen the patient and performed any clinically relevant updates to the history and physical exam. Camryn Head MD 02/17/18 1022 <Electronically signed by Camryn Head MD> Date Camryn Head MD Cosigner Signature: Date (if applicable) CC: Gato Santoyo MD; Camryn Head MD Signed BEDSIDE GLUCOSE Collected: 02/17/2018 Status: F Source: [place] 8:30 AM [facility] REPOSITORY TYPE CODE TESTS RESULT OUT OF RANGE REFERENCE UNITS LAB L501.080 70-110 mg/dL Normal BEDSIDE GLU 70 Result Comment: MANAGEMENT OF PATIENT CARE PER NURSING PROTOCOL Performed By: #### L501.080 #### [facility] Point of Care [facility] [place], [place] [id number] ,URINE Collected: 02/17/2018 Status: F Source: [place] 8:00 AM [facility] REPOSITORY TYPE CODE TESTS RESULT OUT OF REFERENCE UNITS RANGE LAB L400.8000 Negative Normal HCGUQUAL Negative Result Comment: Very dilute urine specimens, as indicated by a low specific gravity, may not contain bottling equipment sales representative levels of hCG. If is still suspected, a first morning urine specimen should be collected 48 hours later and tested. Performed By: #### L400.7600 #### [facility] [address] [place], [address] HYSTERECTOMY SPECIMEN Observed: 02/17/2018 Status: F Source: [place] 12:00 AM [facility] REPOSITORY Patient: ASIM FIELD : 1965 (52/F) Acct Num: [id number] Phys: Sonido REID,Camryn Unit Num: [id number] Loc: MS3 CS348-2 Specimen: [id number] Received: 02/17/181226 Spec Type: HYSTERECT TISSUES 1 TISSUES: Uterus, NOS COMMENT Case has been reviewed in consultation with Dr. Levine who concurs with the above diagnosis. IDC:NIXON GROSS DESCRIPTION Received in fixative is one container labeled with the patient's name and designated uterus. The specimen consists of a uterus with attached right fallopian tube and ovary and attached left fallopian tube. The uterus with cervix measures 9 x 7 x 5 cm and weighs 161 gm. The ectocervix is oval in contour and free of mass lesions. The endocervical canal measures 2.8 cm in length and is grossly unremarkable. The triangular endometrial cavity measures 4.2 x 3 cm. The reddish-michel endometrium measures up to 0.1 cm in thickness. The myometrium measures 2.5 cm in average thickness and is distorted by multiple spherical, rubbery nodules ranging in size from 0.5 to 4 cm in greatest dimension. The smooth, glistening right cystic ovary measures 5 x 4 x 3.8 cm and weighs 30 gm. The external surface is inked and serial sections reveal the cyst to contain reddish-michel clear fluid. The inner cyst lining is smooth and glistening. The cyst wall averages 0.1 cm in thickness. No papillary projections or excrescences are seen. The adjacent right fallopian tube measures 4.5 cm in length and 0.7 cm in average diameter. No tubo-ovarian adhesions are seen and a normal fimbriated end is present. The left fallopian tube is similar in appearance to the right tube and measures 4 cm in length and 0.6 cm in average diameter. Pathology Manager sections are submitted in 12 cassettes as follows: 1 - anterior cervix, 2 - posterior cervix, 3 AND 4 - anterior uterine wall, 5 AND 6 - posterior uterine wall, 7 - largest myometrial mass, 8 - smaller myometrial masses, 9 AND 10 - cystic right ovary, 11 - right fallopian tube, 12 - left fallopian tube. / AM:eveline 02/17/18 TC:1 CPT: 40631 HEADER OPERATION: Lap assisted vaginal hysterectomy, right salpingo-oophorectomy PRE-OP DIAGNOSIS: Uterine fibroid TISSUE SUBMITTED: Uterus, right ovary and fallopian tube, left fallopian tube MICROSCOPIC DESCRIPTION Slides are reviewed. MICROSCOPIC DIAGNOSIS Uterus, hysterectomy: Cervix - minimal chronic inflammation. Endometrium - proliferative endometrium. Myometrium - leiomyomas and focal superficial adenomyosis. Right ovary - hemorrhagic corpus luteal cyst. Right and left fallopian tubes - no pathologic change. AM:eveline 02/18/18 Signed [facility] 02/18/18 <signature on file> Performed By: #### PHYST #### [facility] [address] [place], [place], [address] CBC-COMPLETE BLOOD CNT Collected: 02/14/2018 Status: F Source: [place] NO DIFF 12:36 PM [facility] REPOSITORY Order Comment: Reason for Laboratory Test PRE-OP TYPE CODE TESTS RESULT OUT OF RANGE REFERENCE UNITS LAB L100.1000 4.4-11.0 K/mm3 Normal WBC 6.6 LAB L100.1200 4.2-5.4 M/mm3 Normal RBC 4.37 LAB L100.1300 12.0-15.0 g/dl Normal HGB 13.2 LAB L100.1400 37-47 % Normal HCT 40.7 LAB L100.1500 81-99 fL Normal MCV 93.1 LAB L100.1600 27.0-32.0 pg Normal MCH 30.2 LAB L100.1700 32-36 g/gl Normal MCHC 32.4 LAB L100.1810 11.6-14.6 % Normal RDW CV 13.6 LAB L100.1820 35.1-43.9 fl High RDW SD 46.6 LAB L100.1900 150-450 K/mm3 Normal PLT 344 LAB L100.2000 6.2-12.0 fl Normal MPV 9.3 Performed By: #### L100.0500 #### [facility] [address] [place], [address] TYPE AND SCREEN Collected: 02/14/2018 Status: F Source: [place] 12:36 PM [facility] REPOSITORY Order Comment: Surgery Date: 02/17/18 Hx of Preganancy in last 3 Months No Ever experience any problems with transfusion(s)? N Hx of Transfusion in last 3 Months N Reason for Type AND Screen/Red Cells: SURGERY SURGICAL PROCEDURE: LAP TYPE CODE TESTS RESULT OUT OF RANGE REFERENCE UNITS LAB B10.0800 A Normal BLOOD TYPE GEL POSITIVE LAB B100.4000 Normal Antibody NEGATIVE Screen Performed By: #### B101.7475 #### [facility] [address] [place], [address] FINANCIAL EXAMINER OFFICE VISIT Observed: 10/27/2017 Status: F Source: [place] REPORT 2:37 AM [facility] REPOSITORY [facility] [address] [place] [address] OFFICE VISIT Date of Service: 10/25/17 MR#: [id number] Acct: [id number] Name: ASIM FIELD Rep #: [id number] : 1965 Provider: Camryn Head MD Age/Sex: 52/F Location: [facility] Status: Signed Intake Vital Signs10/25/17 Height 5 ft 1.5 in 10/25/17 Weight: 118 lb 10/25/17 Body Mass Index (BMI) 21.9 10/25/17 Blood Pressure 105/62 Intake Visit Reasons: Discuss surgical options Lineman Required: No Is patient in pain?: No Allergies No Known Allergies Allergy (Verified 10/25/17 08:45) Medications norethindrone acetate 5 mg tablet 5 mg PO QDAY #30 tab 10/25/17 [Rx Confirmed 10/25/17] Is last menstrual period known: Yes Last Menstral Period: 10/24/17 Post menopausal: No Patient : No : No [facility] Surgical History H/O hernia repair (Acute) History of appendectomy (Acute) Family History Father Myocardial infarction Heart disease Sister Uterine cancer Social History alcohol intake: current details: social-rare substance use type: does not use caffeine: Yes what type of physical activity do you participate in: walking seatbelt use: always do you feel safe at home: Yes additional social history: Eren- Self Employed Patient works at [employer] HPI Discuss surgical options: Details: ASIM FIELD is a 52 year old who presents for right ovarian cyst and enlarged uterus with 5.6 cm fibroid. she has had irregular heavy bleeding. she has been on aygestin with some improvement. she had a normal ca 125 and cea. Female Reproductive History Last Menstral Period: 10/24/17 Cycle Length: 21-35 Questions: Sexually active: Yes, Dyspareunia: Yes Pregancy History 6 Elective abortions Hx Para 4 Spontaneous abortions Past Pregnancies Del. DateName GA/Weeks Outcome Route Bth WeighInfant GeLabor LgtAnesthesiDel LocatProvider FOB t n h a n ROS Const Constitutional: Denies poor appetite, headache(s), fever(s), increased appetite, weight gain, weight loss or fatigue Cardio Card: Denies chest pain Resp Resp: Denies dyspnea or cough GI GI: Reports as per HPI, abdominal pain and bloating; denies vomiting, nausea or constipation : Reports as per HPI, urinary urgency, urinary frequency and urinary incontinence (tricia WITH EXERCISE, ACTIVITY); denies vaginal discharge, vaginal itching, vaginal odor, vaginal dryness, urinary hesitancy, difficulty urinating, painful urination or nipple discharge Skin Skin/Breast: Denies breast lump, breast pain, breast skin changes, nipple discharge or change in hair Exam Const General: cooperative, healthy appearing, comfortable, no acute distress, well developed Nutritional Appearance: average body habitus Orientation: alert HENMT Head: normal to inspection, normocephalic Neck Neck: normal visual inspection, trachea midline Thyroid: thyroid normal Resp Effort AND Inspection: normal respiratory effort GI Inspection: normal to inspection, non-distended Palpation: soft, no hepatosplenomegaly General: bladder normal to palpation External Female Exam: normal external appearance, normal appearance of the urethra Urethra: normal appearance of the urethra, normal palpation, no discharge Speculum Exam - Vagina: normal appearance of the vagina, normal vaginal discharge Speculum Exam - Cervix: normal appearance of the cervix, nontender Bimanual Exam- Vagina AND Uterus: bladder normal to palpation, No cervical tenderness, normal bimanual exam, uterine size normal, uterine shape normal, uterine mobility normal, uterine consistency normal, normal cervical palpation, uterus non-tender Bimanual Exam- Adnexa, other: normal adnexae, adnexae mobile, no adnexal masses, pelvic support normal Pelvic Support: normal Skin General: no rashes or lesions noted Assessment AND Plan Problems 1. Enlarged uterus N85.2 2. Complex ovarian cyst N83.299 3. Fibroids, intramural D25.1 4. Abnormal uterine bleeding N93.9 Plan discussed surgical risks including risks of anesthesia, infection, bleeding, injury to bowel, bladder or blood vessels, and patient wishes to proceed with surgery. plan LAVH RSO left salpingectomy and recommend referral to urogyn to discuss TRICIA surgery to be considered at time of hysterectomy Medications New: Coding Level of Care Code Off vis,est,level 4 Diagnoses Enlarged uterus N85.2 Complex ovarian cyst N83.299 Fibroids, intramural D25.1 Abnormal uterine bleeding N93.9 10/27/17 0237 <Electronically signed by Camryn Head MD> Date Camryn Head MD Cosigner Signature: Date (if applicable) CC: CARCINOEMBRYONIC ANTIGEN Collected: 10/12/2017 Status: F Source: [place] 2:19 PM [facility] REPOSITORY TYPE CODE TESTS RESULT OUT OF RANGE REFERENCE UNITS LAB L3100.2300 0.0-4.7 ng/mL Normal CEA 1.0 Result Comment: Emily ECLIA methodology Nonsmokers <3.9 Smokers <5.6 Performed By: #### L3100.2300, L3100.5000 #### [facility] (refer to report for specific site) refer to report for address and phone number CANCER ANTIGEN 125 Collected: 10/12/2017 Status: F Source: [place] 2:19 PM [facility] REPOSITORY TYPE CODE TESTS RESULT OUT OF RANGE REFERENCE UNITS LAB L3100.5000 0.0-38.1 U/mL Normal CA125 34.1 2303 Result Comment: Emily ECLIA methodology Performed at: [facility] [id number] Career Manager: Satnam Bolanos PhD, Phone: [phone] Performed By: #### L3100.2300, L3100.5000 #### [facility] (refer to report for specific site) refer to report for address and phone number TRANSVAGINAL Observed: 10/11/2017 Status: F Source: [place] NON- 3:17 PM [facility] REPOSITORY [facility] [address] [place] [address] Transvaginal Non- MR#: [id number] Acct: [id number] Name: ASIM FIELD Rep #: [id number] : 1965 F 52 From: Porfirio Montes De Oca MD PCP: Gato Santoyo MD Status: REG CLI Study: Transvaginal Non- Date of Exam: 10/11/17 Exam# [id number] Ordering Dr: Lucita De Leon BOATSWAINS MATE-Vi STUDY: ULTRASOUND OF THE FEMALE PELVIS - COMPLETE REASON FOR EXAM: Female, 52 years old. Postmenopausal bleeding. TECHNIQUE: Transabdominal and Transvaginal TECHNICAL QUALITY: Adequate. COMPARISON: None. FINDINGS: The uterus is anteverted and is in a midline position. The uterus measures 9.0 x 8.2 x 6.5 cm. Normal uterine cervix. The endometrium measures 8 mm in thickness, and is hyperechoic. There is no demonstrated endometrial mass. There is a 5.6 x 4.6 x 3.6 cm fibroid in the body of the uterus. The right ovary is visualized. The right ovary measures 5.9 x 3.9 x 2.8 cm. There are 2 cysts in the right ovary with the larger measuring 4.9 x 2.2 x 1.6 cm. There is no visualized right adnexal mass or complex lesion. There is normal arterial and normal venous vascularity. The left ovary is visualized. The left ovary measures 3.1 x 1.7 x 1.7 cm. There is a 1.1 x 1.0 x 0.7 cm cyst in the left ovary. There is no visualized left adnexal mass or complex lesion. There is normal arterial and normal venous vascularity. There is no fluid in the cul-de-sac. US/Transvaginal Non- IMPRESSION: Bilateral ovarian cysts, including a 4.9 x 2.2 x 1.6 cm on the right. Given the patient's age, this is abnormal and further evaluation with MRI is recommended. 5.6 x 4.6 x 3.6 cm fibroid in the uterus. Electronically Signed: Porfirio Montes De Oca, at 20:54 EDT Tel , Service support , CC: RODRIGO De Leon; Gato Santoyo MD Master Plumber: Signed PELVIC (NON ) Observed: 10/11/2017 Status: F Source: [place] 3:17 PM [facility] REPOSITORY [facility] Imaging Services [address] [place] [address] Pelvic (Non ) MR#: [id number] Acct: [id number] Name: ASIM FIELD Rep #: [id number] : 1965 F 52 From: Porfirio Montes De Oca MD PCP: Gato Santoyo MD Status: REG CLI Study: Pelvic (Non ) Date of Exam: 10/11/17 Exam# [id number] Ordering Dr: Lucita De Leon BOATSWAINS MATE-C STUDY: ULTRASOUND OF THE FEMALE PELVIS - COMPLETE REASON FOR EXAM: Female, 52 years old. Postmenopausal bleeding. TECHNIQUE: Transabdominal and Transvaginal TECHNICAL QUALITY: Adequate. COMPARISON: None. FINDINGS: The uterus is anteverted and is in a midline position. The uterus measures 9.0 x 8.2 x 6.5 cm. Normal uterine cervix. The endometrium measures 8 mm in thickness, and is hyperechoic. There is no demonstrated endometrial mass. There is a 5.6 x 4.6 x 3.6 cm fibroid in the body of the uterus. The right ovary is visualized. The right ovary measures 5.9 x 3.9 x 2.8 cm. There are 2 cysts in the right ovary with the larger measuring 4.9 x 2.2 x 1.6 cm. There is no visualized right adnexal mass or complex lesion. There is normal arterial and normal venous vascularity. The left ovary is visualized. The left ovary measures 3.1 x 1.7 x 1.7 cm. There is a 1.1 x 1.0 x 0.7 cm cyst in the left ovary. There is no visualized left adnexal mass or complex lesion. There is normal arterial and normal venous vascularity. There is no fluid in the cul-de-sac. US/Pelvic (Non ) IMPRESSION: Bilateral ovarian cysts, including a 4.9 x 2.2 x 1.6 cm on the right. Given the patient's age, this is abnormal and further evaluation with MRI is recommended. 5.6 x 4.6 x 3.6 cm fibroid in the uterus. Electronically Signed: Porfirio Montes De Oca, at 20:54 EDT Tel , Service support , CC: RODRIGO De Leon; Gato Santoyo MD Master Plumber: Signed FINANCIAL EXAMINER OFFICE VISIT Observed: 10/11/2017 Status: F Source: [place] REPORT 3:09 PM [facility] [place] [address] [place] [address] OFFICE VISIT Date of Service: 10/11/17 MR#: [id number] Acct: [id number] Name: ASIM FIELD Rep #: [id number] : 1965 Provider: RODRIGO De Leon Age/Sex: 52/F Location: [facility] Status: Signed Intake Vital Signs10/11/17 Height 5 ft 1.5 in 10/11/17 Weight: 116 lb 6 oz 10/11/17 Body Mass Index (BMI) 21.6 10/11/17 Blood Pressure 100/62 Intake Visit Reasons: New patient vaginal bleeding Chief Complaint: PMB Lineman Required: No Is patient in pain?: No Allergies No Known Allergies Allergy (Unverified 10/11/17 14:44) Medications norethindrone acetate 5 mg tablet 5 mg PO .COMPLEX #45 tab 10/11/17 [Rx Confirmed 10/11/17] Is last menstrual period known: Yes Last Menstral Period: 09/28/17 Post menopausal: No Patient : No : No PFSH Surgical History H/O hernia repair (Acute) History of appendectomy (Acute) Family History Father Myocardial infarction Heart disease Social History alcohol intake: current details: social-rare substance use type: does not use caffeine: Yes what type of physical activity do you participate in: walking seatbelt use: always do you feel safe at home: Yes additional social history: Eren- Self Employed Patient works at [employer] [facility] New patient vaginal bleeding: Details: ASIM FIELD is a 52 year old who presents for new patient discussion of prolonged and heavy menses. States happened in January 2017 and had negative EMB per Dr. Gato Chi. States since then menses regular lasting 5-6 days. She then started this menses September 28 and it continues and has been heavy last 2 days. She has not had any other symptoms Female Reproductive History Last Menstral Period: 09/28/17 Pregancy History 6 Elective abortions Hx Para 4 Spontaneous abortions Past Pregnancies Del. DateName GA/Weeks Outcome Route Bth WeighInfant GeLabor LgtAnesthesiDel LocatProvider FOB t n h a n ROS Const Constitutional: Reports system reviewed and no additional complaints, except as docu GI GI: Denies abdominal pain or change in bowel habits Exam Const General: no acute distress Nutritional Appearance: well nourished Orientation: oriented x3 Assessment AND Plan Problems 1. Menorrhagia with regular cycle N92.0 Plan Discussed reassuring since I do have copy of normal EMB in Jan 2017. Will proceed with ultrasound and labs. Call results Aygestin Rx. 20 min FTF counseling with patient. Orders Orders: Medications New: Coding Level of Care Code Off vis,new,level 3 Diagnoses Menorrhagia with regular cycle N92.0 10/11/17 1509 <Electronically signed by Lucita LOPEZ> Date Lucita LOPEZ Cosigner Signature: Date (if applicable) CC: THYROID STIM HORMONE Collected: 10/11/2017 Status: F Source: [place] (TSH) 3:06 PM [facility] REPOSITORY TYPE CODE TESTS RESULT OUT OF RANGE REFERENCE UNITS LAB L501.9520 0.358-3.74 uIU/mL Normal TSH 2.23 Performed By: #### L501.9520, L100.0100 #### [facility] [place], [place], [address] CBC W/DIFF, AUTOMATED Collected: 10/11/2017 Status: F Source: [place] 3:06 PM [facility] REPOSITORY TYPE CODE TESTS RESULT OUT OF RANGE REFERENCE UNITS LAB L100.1000 4.4-11.0 K/mm3 Normal WBC 5.4 LAB L100.1200 4.2-5.4 M/mm3 Low RBC 4.12 LAB L100.1300 12.0-15.0 g/dl Normal HGB 12.7 LAB L100.1400 37-47 % Normal HCT 39.2 LAB L100.1500 81-99 fL Normal MCV 95.1 LAB L100.1600 27.0-32.0 pg Normal MCH 30.8 LAB L100.1700 32-36 g/gl Normal MCHC 32.4 LAB L100.1810 11.6-14.6 % Normal RDW CV 13.3 LAB L100.1820 35.1-43.9 fl High RDW SD 44.4 LAB L100.1900 150-450 K/mm3 Normal PLT 259 LAB L100.2000 6.2-12.0 fl Normal MPV 10.3 LAB L100.2100 47-70 % Normal NEUT% 59.6 LAB L100.2200 19-41 % Normal LY% 28.9 LAB L100.2300 0-10 % Normal MONO% 9.6 LAB L100.2400 0-5 % Normal EO% 1.1 LAB L100.2500 0-1 % Normal BASO% 0.6 LAB L100.2550 0.0-0.9 % Normal IM GRAN % 0.200 Result Comment: IG% - Immature Granulocytes (promyelocytes, myelocytes and metamyelocytes) > 1% indicates that a LEFT SHIFT is Present. LAB L100.2620 2.0-7.7 X10 3/uL Normal Absolute Neut 3.2 LAB L100.2720 0.83-4.51 X10 3/ul Normal Absolute Lymph 1.56 Performed By: #### L501.9520, L100.0100 #### [facility] [address] [place], [address] ALLERGIES ALLERGIES DATE TYPE / CODE NAME / CODE REACTION SEVERITY SOURCE 03/03/2018 Drug No Known Unknown [facility] Allergy/4160 Allergies/F00 Hospital 77202(SNOMED 2777644(RXNOR Repository CT) M) ENCOUNTERS ENCOUNTERS ADMIT/DISCHARGE ACCOUNT ADMITTING ENCOUNTER LOCATION SOURCE NUMBER CLASS 03/03/2018/ [id number] Ambulatory BMSBuilding:B [place] [address] 9 [facility] Repository 02/18/2018 [id number] Ambulatory BMSBuilding:B [place] 5 MS.CF.[facility] Repository 02/17/2018/ [id number] Ambulatory [facility] 8 7 [facility] ing:SDCRoom: Repository [id number] 02/17/2018 [id number] Ambulatory BMSBuilding:B [place] 1 MS.CF.[facility] Repository 02/14/2018 [id number] Ambulatory BMSBuilding:W [place] 5 [facility] Repository 02/04/2018/ [id number] Ambulatory BMSBuilding:B [place] 8 2 MS.[facility] Repository 10/25/2017/ [id number] Ambulatory BMSBuilding:B [place] 8 2 [facility] Repository 10/12/2017 [id number] Ambulatory [place] 6 [facility] ing:LAB Repository 10/11/2017 [id number] Ambulatory [place] 6 [facility] ing:US Repository 10/11/2017 [id number] Ambulatory [place] 7 [facility] ing:POLAB3 Repository 10/11/2017/ [id number] Ambulatory BMSBuilding:B [place] 8 6 [facility] Repository PAYERS PAYERS ENCOUNTER GUARANTOR PAYER SUBSCRIBER SOURCE 03/03/2018 LOKESH Brasher Primary NOT GIVENUNK [place] [id number] N Insurance:SELF PAY [place], [place] Number: Effective Repository [id number]: (330) Date:2018-03-03 [phone] () 02/18/2018 LOKESH Brasher Primary Insurance:[facility] ASIM L [place] [id number] N PACKAGE PLANPolicy WENGERDOB: [facility] Number: [id number] [id number] Repository [address]Jxi: (330) Date:2017-11-26 [phone] () 02/18/2018 Secondary NOT GIVENUNK [place] Insurance:SELF PAY [place] Number: Effective Repository Date:2018-02-18 02/17/2018 LOKESH Brasher Primary Insurance:[facility] ASIM L [place] [id number] N PACKAGE PLANPolicy WENGERDOB: [facility] Number: [id number], [place] [id number] Repository [address]Cqq: (330) Date:2017-11-26 [phone] () 02/17/2018 Secondary NOT GIVENUNK [place] Insurance:SELF PAY [place] Number: Effective Repository Date:2017-11-26 02/17/2018 LOKESH Brasher Primary Insurance:[facility] ASIM L [place] [id number] N PACKAGE PLANPolicy WENGERDOB: Community [facility] Number: [id number], [place] [id number] Repository [address]Pay: (330) Date:2017-11-26 [phone] () 02/17/2018 Secondary NOT GIVENUNK [place] Insurance:SELF PAY [place] Number: Effective Repository Date:2018-02-17 02/14/2018 LOKESH Brasher Primary Insurance:[facility] ASIM L [place] [id number] N PACKAGE PLANPolicy [facility] [place] Number: [id number], [place] [id number] Repository [address]Urh: (330) Date:2017-11-26 [phone] () 02/14/2018 Secondary NOT GIVENUNK [place] Insurance:SELF PAY [place] Number: Effective Repository Date:2018-02-14 02/04/2018 Lokesh Brasher Primary NOT GIVENUNK [place] [id number] N Insurance:SELF PAY [place], [place] Number: Effective Repository [id number]: (330) Date:2018-02-04 [phone] () 10/25/2017 Lokesh Brasher Primary NOT GIVENUNK [place] [id number] N Insurance:SELF PAY [place] Number: Effective Repository [id number]: (330) Date:2017-10-25 [phone] (HP) 10/12/2017 Lokesh Brasher Primary NOT GIVENUNK [place] [id number] N Insurance:SELF PAY [place] Number: Effective Repository [id number]: (330) Date:2017-10-12 [phone] () 10/11/2017 Lokesh Brasher Primary Insurance:[facility] ASIM L [place] [id number] N PACKAGE PLANPolicy WENGERDOB: Community [facility] Number: [id number], [place] [id number] Repository [address]App: (330) Date:2017-10-11 [phone] () 10/11/2017 Secondary NOT GIVENUNK [place] Insurance:SELF PAY [place] Number: Effective Repository Date:2017-10-11 10/11/2017 Lokesh Brasher Primary NOT GIVENUNK [place] [id number] N Insurance:SELF PAY [place] Number: Effective Repository [id number]: (330) Date:2017-10-11 [phone] () 10/11/2017 Lokesh Brasher Primary NOT GIVENUNK [place] [id number] N Insurance:SELF PAY [place] Number: Effective Repository [id number]: (330) Date:2017-10-11 [phone] ()
== END 2018-02-18 10:40 | disposition home or self-care (01) ==
LOC: SDC 07:47 → AC 07:48 → MS3 07:54
PROVIDERS: Family Provider Family Medicine; PCP Family Medicine; Referring Provider Obstetrics & Gynecology; Visit Provider Obstetrics & Gynecology
PROC: 0UT9FZZ Resection of Uterus, Via Natural or Artificial Opening With Percutaneous Endoscopic Assistance (ICD-10-PCS; CPT 58552; principal; 2018-02-17 09:15)
DX: D25.1 Intramural leiomyoma of uterus (principal); N83.11 Corpus luteum cyst of right ovary; N80.0 Endometriosis of uterus
CPT/HCPCS: 58552; 36415; 80048; 81025; 82962; 85027; 86850; 86900; 88307; 93005; 94762; J7050; J7120; J2405

== ENCOUNTER → 2019-05-09 | Outpatient (CLI) | payer SELFPAY ==
[2018-03-30 10:12] VITALS: BMI 24.3
== END | disposition home or self-care (01) ==
PROVIDERS: PCP Family Medicine; Referring Provider Registered Nurse; Visit Provider Registered Nurse
DX: R39.9 Unspecified symptoms and signs involving the genitourinary system (principal)
CPT/HCPCS: 87086; 87088

== ENCOUNTER → 2019-05-15 | Outpatient (CLI) | payer SELFPAY ==
[2019-05-15 10:39] VITALS: BMI 24.3
== END | disposition home or self-care (01) ==
LOC: LABSPEC 17:00
PROVIDERS: PCP Family Medicine; Referring Provider Nurse Practitioner Women's Health; Visit Provider Nurse Practitioner Women's Health
DX: R10.2 Pelvic and perineal pain (principal)
CPT/HCPCS: 87070; 87205

== ENCOUNTER → 2019-05-23 15:26 | Outpatient (CLI) | payer SELFPAY ==
[2019-05-15 10:39] VITALS: BMI 24.3
--- NOTE | 2019-05-23 15:33 | US_ITS ---
STUDY: RENAL ULTRASOUND - COMPLETE REASON FOR EXAM: Female, 53 years old. RECURRING UTI''S TECHNIQUE: Ultrasound evaluation of the kidneys was performed with real-time and static watters-scale imaging. COMPARISON: None. FINDINGS: RIGHT KIDNEY: Normal location of the right kidney, which is normal in size. The right kidney measures 10.4 x 4.9 x 3.5 cm. There is a normal cortex of the right kidney. The renal cortex measures 1 there is a small hyperechoic focus possibly representing lipomatous density measuring 4 x 5 x 5 mm.. There are no right renal calculi. There is no right hydronephrosis. DISTAL RIGHT URETER: There is non-visualization of the distal right ureter. There is no demonstrated right ureterovesical junction calculus. There is a visualized right ureteral jet. LEFT KIDNEY: Normal location of the left kidney, which is normal in size. The left kidney measures 9.4 x 4.8 x 4.3 cm. There is a normal cortex of the left kidney. The renal cortex measures 1.4 cm. There is no left renal mass or cyst. There are no left renal calculi. There is no left hydronephrosis. DISTAL LEFT URETER: There is non-visualization of the distal left ureter. There is no demonstrated left ureterovesical junction calculus. There is a visualized left ureteral jet. BLADDER: The distended urinary bladder has a volume of 216.88 ml. The empty urinary bladder has a volume of 5.16 ml. There is a normal wall thickness of the distended urinary bladder. There is no demonstrated mass within the urinary bladder. There are no demonstrated bladder calculi. US/Kidney and Bladder IMPRESSION: Tiny hyperechoic nodule in the right kidney which may be consistent with lipomatous density. No evidence for renal obstruction Electronically Signed: Niall Campos MD at 22:52 EST , Service support ,
== END ==
PROVIDERS: PCP Family Medicine; Referring Provider Urology; Visit Provider Urology
DX: N39.0 Urinary tract infection, site not specified (principal)
CPT/HCPCS: 76770

== ENCOUNTER → 2019-08-23 08:26 | Outpatient (CLI) | payer SELFPAY ==
[2019-05-15 10:39] VITALS: BMI 24.3
--- NOTE | 2019-08-23 08:37 | CT_ITS ---
STUDY: CT ABDOMEN AND PELVIS WITH AND WITHOUT CONTRAST REASON FOR EXAM: Female, 54 years old. RENAL MASS ON ULTRASOUND RADIATION DOSAGE (If Supplied By Facility): CTDIvol = ( 7.07 ) mGy, DLP = ( 1010.69 ) mGycm TECHNIQUE: Transaxial images were obtained from the dome of the diaphragm to the symphysis pubis without oral contrast. IV 100mL Isovue-370 was administered. Sagittal and coronal images were reconstructed. Individualized dose optimization techniques were used for this CT. COMPARISON: Comparison is made with prior sonogram of the kidney dated May 23, 2019. FINDINGS: The visualized lung bases are unremarkable. The visualized portions of the heart are within normal limits. Normal liver. Normal gallbladder and extrahepatic biliary system. Normal spleen. Normal pancreas. Normal bilateral adrenal glands. 4 mm well-circumscribed hypodensity in the lateral superior aspect of the right kidney suggestive of a tiny fatty lesion suggestive of a lipoma. Normal left kidney. Normal visualized stomach. Normal small intestine. Normal colon. The appendix is visualized and appears normal. Normal abdominal aorta. Normal inferior vena cava. Normal retroperitoneum. Normal urinary bladder. Normal abdominal wall. Normal osseous structures. CT/CT Abd/Pelvis W/WO Contrast IMPRESSION: 4 mm hypodensity in the right kidney as described suggestive of tiny lipomatous change corresponding to the ultrasound finding. Electronically Signed: Harrison Gamble, at 14:37 EDT , Service support ,
== END ==
PROVIDERS: PCP Family Medicine; Referring Provider Urology; Visit Provider Urology
DX: N28.89 Other specified disorders of kidney and ureter (principal)
CPT/HCPCS: 74178; Q9967

== ENCOUNTER → 2020-08-26 12:20 | Outpatient (CLI) | payer OTHER, SELFPAY ==
[2019-05-15 10:39] VITALS: BMI 24.3
--- NOTE | 2020-08-26 12:27 | US_ITS ---
STUDY: RENAL ULTRASOUND - COMPLETE REASON FOR EXAM: Female, 55 years old. UTI TECHNIQUE: Ultrasound evaluation of the kidneys was performed with real-time and static watters-scale imaging. COMPARISON: Comparison is made with prior examination of 05/23/2019. FINDINGS: RIGHT KIDNEY: Normal location of the right kidney, which is normal in size. The right kidney measures 11 cm x 4 cm x 3.4 cm. There is a normal cortex of the right kidney. The renal cortex measures 1.0 cm. Once again, a focal echogenic nodule is seen in the right kidney measuring 6 mm x 6 mm x 6 mm. This is unchanged. There are no right renal calculi. There is an extra-renal pelvis of the right kidney. There is no distention of the renal calyces. DISTAL RIGHT URETER: There is non-visualization of the distal right ureter. There is no demonstrated right ureterovesical junction calculus. There is a visualized right ureteral jet. LEFT KIDNEY: Normal location of the left kidney, which is normal in size. The left kidney measures 9.9 cm x 5.5 cm x 5.5 cm. There is a normal cortex of the left kidney. The renal cortex measures 1.3 cm. There is no left renal mass or cyst. There are no left renal calculi. There is no left hydronephrosis. DISTAL LEFT URETER: There is non-visualization of the distal left ureter. There is no demonstrated left ureterovesical junction calculus. There is no demonstrated left ureteral jet. BLADDER: The distended urinary bladder has a volume of 578 ml. The empty urinary bladder has a volume of 33 ml. There is a normal wall thickness of the distended urinary bladder. There is no demonstrated mass within the urinary bladder. There are no demonstrated bladder calculi. 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 Electronically Signed: Harrison Gabmle MD at 10:47 EDT , Service support ,
== END ==
PROVIDERS: PCP Family Medicine; Referring Provider Urology; Visit Provider Urology
DX: N39.0 Urinary tract infection, site not specified (principal)
CPT/HCPCS: 76770

== ENCOUNTER → 2021-03-04 08:50 | Outpatient (CLI) | payer OTHER, SELFPAY ==
[2021-03-04 10:34] LABS: Anion Gap 4 (5-15); BUN 22 mg/dL (7-18); BUN/Creat Ratio 26.2 RATIO (10-20); Calcium,Total 9.2 mg/dL (8.5-10.1); Chloride 106 mmol/L (98-107); Cholesterol 242 mg/dL (200); Creatinine, Serum 0.84 mg/dL (0.55-1.02); EST Glomerular Filtration Rate 75 mL/min (>60); Est Glom Filt Rate - Afr Amer 90 mL/min (>60); Glucose 90 mg/dL (74-106); High Density Lipoprotein 63 mg/dL; Potassium 4.8 mmol/L (3.5-5.1); Sodium Level 138 mmol/L (136-145); Thyroid Stim Hormone (TSH) 1.38 uIU/mL (0.358-3.74); Triglycerides 71 mg/dL; Very Low Density Lipoprotein 14 mg/dL (5-40)
== END ==
PROVIDERS: PCP Family Medicine; Visit Provider Family Medicine
DX: Z00.00 Encounter for general adult medical examination without abnormal findings (principal)
CPT/HCPCS: 36415; 80048; 80061; 82306; 84443

== ENCOUNTER 2021-03-31 08:30 | Outpatient (CLI) | payer OTHER, SELFPAY ==
--- NOTE | 2021-03-31 08:34 | BI_ITS ---
MAMMOGRAPHY - BILATERAL SCREENING REASON FOR EXAM: Female, 55 years old. Routine annual screening examination. PERTINENT HISTORY: Sister with breast cancer. Remote left stereotactic breast biopsy. TECHNIQUE: Digital bilateral breast miguel (3D mammographic acquisition) in the CC and MLO projections. 2-D mediolateral oblique (MLO) and craniocaudad (CC) views of both breasts were obtained. CAD: Full Field Digital Mammography with Computer Added Detection was performed. COMPARISON: Comparison is made with prior study dated 02/06/2017 and 02/18/2015. FINDINGS: Breast Composition: The breasts are extremely dense, which lowers the sensitivity of mammography. There are no dominant masses or suspicious calcifications. A physical marker is seen in the retroareolar region of the left breast. No other significant abnormalities are identified. There has been no significant change since the prior study. BI/SCRN MAMM (CAD)W/MIGUEL BILAT IMPRESSION: Stable bilateral screening mammogram. Yearly follow-up mammogram recommended. (A) ASSESSMENT CATEGORY: BIRADS Category 2: Benign. A letter regarding these results will be sent to the patient by the facility within 30 days. Approximately 10% of breast cancers are not detected by mammography. A normal mammogram should not delay biopsy of a clinically suspicious abnormality. [id number] Electronically Signed: Harrison Gamble MD at 9:36 EST , Service support ,
== END 2021-03-31 23:59 | disposition short-term general hospital (02) ==
LOC: OPBI 08:32
PROVIDERS: PCP Family Medicine; Referring Provider Obstetrics & Gynecology; Visit Provider Obstetrics & Gynecology
DX: Z12.31 Encounter for screening mammogram for malignant neoplasm of breast (principal); Z80.3 Family history of malignant neoplasm of breast
CPT/HCPCS: 77063; 77067

== ENCOUNTER 2021-04-21 14:30 | Outpatient (CLI) | payer OTHER, SELFPAY ==
[2021-04-21 14:34] LABS: Mucous, Urine 0 SEEN /hpf (<or=2+); Squamous Epithelial Cells - UA 0 SEEN /hpf (5-10)
[2021-04-21 18:15] LABS: Color, Urine Straw (Yellow); Glucose, Dipstick Normal (Normal); Ketone-Dipstick Negative (Negative); Leukocyte Esterase-Dipstick 500 /ul (Negative); Nitrite-Dipstick Negative (Negative); Occult Blood-Urine 150 /ul (Negative); Protein-Dipstick Negative (Negative); Urine Bilirubin Dipstick Negative (Negative); Urine Clarity Clear (Clear); Urine Urobilinogen Normal (Normal)
[2021-04-21 18:38] LABS: White Blood Cells 50-100 SEEN /hpf (0-5)
[2021-04-21 18:39] LABS: Bacteria 1+ /hpf (None Seen); Red Blood Cells-Urine 0-5 SEEN /hpf (0-5)
== END 2021-04-21 23:59 | disposition short-term general hospital (02) ==
LOC: MFPLAB 14:31
PROVIDERS: Family Medicine; PCP Family Medicine; Visit Provider Family Medicine
DX: R39.9 Unspecified symptoms and signs involving the genitourinary system (principal)
CPT/HCPCS: 81001; 87086; 87088